=== PATIENT | male | born 2000 ===

== ENCOUNTER 2024-09-13 20:20 | Emergency (ER) | payer SELFPAY ==
[2024-09-13 20:24] VITALS: BP 123/102
[2024-09-13 21:12] VITALS: BP 126/78
== END 2024-09-13 21:11 ==
LOC: EMR 20:20
PROVIDERS: EMERGENCY PHYSICIAN Emergency Medicine
DX: R07.9 Chest pain, unspecified (principal); M54.6 Pain in thoracic spine; Z53.29 Procedure and treatment not carried out because of patient's decision for other reasons
CPT/HCPCS: 93005